=== PATIENT | male | born 1975 | race Two or more races ===

== ENCOUNTER 2025-04-22 08:00 | Outpatient (CLI) | payer OTHER ==
[~2025-04-22] VITALS: Ht 170.2 cm; Wt 80.3 kg
[2025-04-22] MEDS ORDERED: PROTONIX20 MG (13:20)
[2025-04-22] MEDS ORDERED: ATACAND16 MG PO (13:20)
[2025-04-22 13:24] VITALS: BP 140/90
== END 2025-04-29 08:15 | disposition home or self-care (01) ==
LOC: EKG 08:00 → SURH 04-29 11:45 → EDSTATUS 04-29 11:45 → SURH 04-29 16:15
PROVIDERS: ATTEND Surgery
DX: K57.20 Diverticulitis of large intestine with perforation and abscess without bleeding (principal); K59.09 Other constipation; I10 Essential (primary) hypertension

== ENCOUNTER 2025-05-29 11:00 | Inpatient (IN) | payer OTHER ==
[~2025-05-29] VITALS: Ht 170.2 cm; Wt 80.3 kg
[~2025-05-29 11:00] MED LIST: ATACAND16 MG PO; PROTONIX20 MG
[2025-05-29 11:51] VITALS: BP 153/84
[2025-06-03] MEDS ORDERED: BUPIVACAINE HCL/MPF 0.5% 30ML VIAL ONE (07:09)
[2025-06-03] MEDS ORDERED: SUGAMMADEX SODIUM 200 MG/2 ML VIAL IV ONE (08:37)
[2025-06-03] MEDS ORDERED: CEFTRIAXONE SODIUM 2,000 MG VIAL IV ONE (08:45)
[2025-06-03] MEDS ORDERED: BUPIVACAINE HCL 30 ML VIAL IJ ONE (08:45)
[2025-06-03] MEDS ORDERED: LIDOCAINE HCL 1%/EPINEPHRINE 20ML VIAL IJ ONE (08:45)
[2025-06-03] MEDS ORDERED: METRONIDAZOLE/SODIUM CHLORIDE 500 MG/100 ML PIGGYBACK IV ONE (08:45)
[2025-06-03] MEDS ORDERED: MORPHINE SULFATE 4 MG/ML VIAL IV ONE ×2 (12:30→13:15)
[2025-06-03] MEDS ORDERED: OxyCODONE HCL 5 MG TABLET (ROXICODONE) PO PRN (13:45)
[2025-06-03] MEDS ORDERED: DEXTROSE 50 % IN WATER 0.5 G/ML VIAL IV PRN (13:45)
[2025-06-03] MEDS ORDERED: MORPHINE SULFATE 4 MG/ML CARTRIDGE IV PRN (13:45)
[2025-06-03] MEDS ORDERED: ONDANSETRON HCL 2 MG/ML VIAL IV PRN (13:45)
[2025-06-03] MEDS ORDERED: RINGERS SOLUTION,LACTATED 1,000 ML IV SCH (13:45)
[2025-06-03] MEDS ORDERED: ACETAMINOPHEN 500 MG GEL..CAP PO SCH (14:00)
[2025-06-03] MEDS ORDERED: KETOROLAC TROMETHAMINE 60 MG VIAL IM ONE (15:32)
[2025-06-03 16:20] LABS: BASO % 0.1 % (0.1-1.2); EOS # 0.00 (0.04-0.54); EOS % 0.0 % (0.7-7.0); LYMPH # 0.33 (1.18-3.74); LYMPH % 2.0 % (19.3-53.1); MEAN PLATELET VOLUME 8.30 fl (9.4-12.4); MONO # 1.31 (0.24-0.82); MONO % 8.1 % (4.7-12.5); NEUT # 14.39 (1.56-6.13); NEUT % 89.1 % (34.0-71.1); RED CELL DISTRIBUTION WIDTH 13.1 % (11.6-14.4)
[2025-06-03] MEDS ORDERED: KETOROLAC TROMETHAMINE 60 MG VIAL IM STA (17:00)
[2025-06-03] MEDS ORDERED: HYOSCYAMINE SULFATE 0.125 MG TAB.SUBL SL SCH (17:00)
[2025-06-03] MEDS ORDERED: GABAPENTIN 300 MG CAPSULE PO SCH (17:00)
[2025-06-03] MEDS ORDERED: KETOROLAC TROMETHAMINE 30 MG VIAL IV SCH (17:00)
[2025-06-03] MEDS ORDERED: METOCLOPRAMIDE HCL 5 MG/ML VIAL IV SCH (17:00)
[2025-06-03] MEDS ORDERED: FAMOTIDINE/PF 20 MG/2 ML VIAL IV PUSH SCH (21:00)
[2025-06-03 21:57] VITALS: BP 114/60; O2SAT 99
[2025-06-04 00:31] VITALS: BP 129/68; O2SAT 94
[2025-06-04 06:47] LABS: BASO % 0.2 % (0.1-1.2); EOS # 0.02 (0.04-0.54); EOS % 0.2 % (0.7-7.0); LYMPH # 0.90 (1.18-3.74); LYMPH % 9.0 % (19.3-53.1); MEAN PLATELET VOLUME 8.80 fl (9.4-12.4); MONO # 1.38 (0.24-0.82); NEUT # 7.59 (1.56-6.13); NEUT % 76.3 % (34.0-71.1); RED CELL DISTRIBUTION WIDTH 12.8 % (11.6-14.4)
[2025-06-04 07:09] LABS: BUN CREA RATIO 8.0 (7.0-25.0); CREATININE SERUM 1.04 mg/dL (0.70-1.30); GFR 75.29; GLUCOSE FASTING 96.0 mg/dL (65-100); OSMOLALITY SERUM 281.0 MOSM/KG (275-295)
[2025-06-04 07:16] LABS: MONO % 13.9 % (4.7-12.5)
[2025-06-04 07:50] VITALS: BP 125/75
[2025-06-04] MEDS ORDERED: LACTOBACILLUS ACIDOPHILUS 1 CAP CAP PO SCH (09:00)
[2025-06-04] MEDS ORDERED: CANDESARTAN CILEXETIL 16 MG TABLET PO SCH (09:00)
[2025-06-04] MEDS ORDERED: GABAPENTIN 300 MG CAPSULE PO PRN (15:39)
[2025-06-04 16:48] VITALS: BP 133/88
[2025-06-04] MEDS ORDERED: ENOXAPARIN SODIUM 40 MG/0.4 ML SYRINGE SUBCUTANEO SCH (17:00)
[2025-06-04 23:50] VITALS: BP 147/85; O2SAT 96
[2025-06-05] MEDS ORDERED: CELECOXIB200 MG PO (07:26)
[2025-06-05] MEDS ORDERED: LEVSIN/SL0.125 MG SL (07:31)
[2025-06-05] MEDS ORDERED: MIRALAX17 GM PO (08:16)
[2025-06-05] MEDS ORDERED: NEURONTIN300 MG PO (08:16)
[2025-06-05 08:24] VITALS: BP 150/95
[2025-06-05] MEDS ORDERED: ENOXAPARIN SODIUM 40 MG/0.4 ML SYRINGE SUBCUTANEO SCH (09:00)
== END 2025-06-05 10:45 | disposition home or self-care (01) | DRG 331 ==
LOC: O/R 06-03 06:00 → SURH 06-03 07:00 → MEDI 06-03 14:55
PROVIDERS: ADMIT Surgery; ATTEND Surgery
PROC: 0DBP4ZZ Excision of Rectum, Percutaneous Endoscopic Approach (ICD-10-PCS; 2025-06-03)
PROC: 0DJD8ZZ Inspection of Lower Intestinal Tract, Via Natural or Artificial Opening Endoscopic (ICD-10-PCS; 2025-06-03)
PROC: 0DTN4ZZ Resection of Sigmoid Colon, Percutaneous Endoscopic Approach (ICD-10-PCS; principal; 2025-06-03 07:00)
DX: K57.20 Diverticulitis of large intestine with perforation and abscess without bleeding (principal); K59.09 Other constipation